=== PATIENT | female | born 1950 | race Two or more races ===

== ENCOUNTER → 2016-10-06 | Outpatient (CLI) | payer OTHER | END | disposition home or self-care (01) | LOC: HKI 14:04 | PROVIDERS: ATTEND Orthopaedic Surgery | DX: M17.0 Bilateral primary osteoarthritis of knee (principal); E66.01 Morbid (severe) obesity due to excess calories; Z68.42 Body mass index [BMI] 45.0-49.9, adult; M81.0 Age-related osteoporosis without current pathological fracture | CPT/HCPCS: G0463 ==

== ENCOUNTER 2017-06-24 10:54 | Emergency (ER) | payer OTHER ==
[~2017-06-24] VITALS: Ht 157.5 cm; Wt 117.8 kg
[2017-06-24 10:56] VITALS: Ht 157.5 cm; Wt 117.8 kg
[2017-06-24] MEDS ORDERED: ACETAMINOPHEN 500 MG TAB PO STA (13:18)
--- NOTE | 2017-06-24 14:08 | RADRPT ---
PROCEDURE: XR Hand. CLINICAL INDICATION: Right hand pain, crush injury fourth and fifth digits TECHNIQUE: 3 views of the right hand were obtained. COMPARISON: No prior studies are available for comparison. FINDINGS: There is no evidence of acute fracture. The lateral image is limited due to finger overlap. Alignment is normal. Joint spaces are preserved. There is soft tissue swelling of the fourth and fifth digits. IMPRESSION: 1. No definite acute fracture though the lateral image is limited due to overlap of the digits. 2. Mild soft tissue swelling of the fourth and fifth digits. RPTAT: [facility] .Allan Rosa MD, MD Date Time Electronically viewed and signed by .Allan Rosa MD, on 06/24/2017 14:07 .K/
--- NOTE | 2017-06-24 14:17 | ERD ---
ER Documentation Chief Complaint Chief Complaint RT HAND INJURY FROM CAR DOOR HPI This 67-year-old female presents to the emergency room for evaluation of hand injury. This patient states that she got her right hand caught in a car door on accident. She denies any other trauma and states that she is having pain in her fourth and fifth digit. The patient states she is able to move fingers without difficulty and denies any numbness or tingling. ROS All systems reviewed and are negative except as per history of present illness. Allergies Allergies: Coded Allergies: No Known Allergy (Unverified , 06/24/17) PMhx/Soc Medical and Surgical Hx: pt denies Medical Hx, pt denies Surgical Hx Hx Alcohol Use: No Hx Substance Use: No Hx Tobacco Use: No Smoking Status: Never smoker Physical Exam Vitals Vital Signs Date Time Temp Pulse Resp B/P Pulse Ox O2 Delivery O2 Flow Rate FiO2 06/24/17 10:56 97.4 70 18 199/90 99 Physical Exam Const: No acute distress Head: Atraumatic Eyes: Normal Conjunctiva ENT: Normal External Ears, Nose and Mouth. Neck: Full range of motion..~ No meningismus. Resp: Clear to auscultation bilaterally Cardio: Regular rate and rhythm, no murmurs Abd: Soft, non tender, non distended. Normal bowel sounds Skin: No petechiae or rashes Back: No midline or flank tenderness Ext: Mild soft tissue swelling noted over the fourth and fifth digit, no cyanosis, or edema Neur: Awake and alert Psych: Normal Mood and Affect Results 24 hrs Current Medications Medications (Trade) Dose Ordered Sig/Esther Route PRN Reason Start Time Stop Time Status Last Admin Dose Admin Acetaminophen (Tylenol Tab) 500 mg ONCE STAT PO 06/24/17 13:18 06/24/17 13:20 DC 06/24/17 13:32 Procedures/MDM X-ray Hand 3V interpreted by me: Scaphoid: [Normal] Bones: [No fracture] Joints: [No dislocation] Foreign body: [None] This 67-year-old female presents to the ER after getting her hand caught in a car door. On my examination the patient was neurovascularly intact with good cap refill in the fingers. Full range of motion in the hand was noted. The patient had minor soft tissue swelling of the fourth and fifth digits. X-rays were obtained which does not show any acute fractures. She was given Tylenol in the emergency room and will be discharged home at this time with instructions to ice her fingers. Departure Diagnosis: Primary Impression: Contusion of hand, right Condition: Stable FLAQUITA VERAS DO Jun 24, 2017 14:17
[2017-06-24 15:07] VITALS: BP 155/62
== END 2017-06-24 15:08 | disposition home or self-care (01) ==
LOC: FTE 10:54
DX: S60.221A Contusion of right hand, initial encounter (principal); W23.1XXA Caught, crushed, jammed, or pinched between stationary objects, initial encounter; Y92.9 Unspecified place or not applicable